=== PATIENT | male | born 2000 | race African-American/Black ===

== ENCOUNTER 2022-10-11 08:16 | Emergency (ER) | payer MEDICAID ==
[~2022-10-11] VITALS: Ht 193 cm; Wt 77.3 kg
[2022-10-11 08:23] VITALS: TEMP 97.9
[2022-10-11] MEDS ORDERED: LIDOCAINE 1% 10 ML VIAL ONE (09:00)
[2022-10-11] MEDS ORDERED: CLIN-26 PO (09:43)
[2022-10-11 09:46] VITALS: BP 123/77; PULSE 70; RESP 18
== END 2022-10-11 09:48 | disposition home or self-care (01) ==
LOC: EMS 08:16
DX: S51.811A Laceration without foreign body of right forearm, initial encounter (principal); S71.011A Laceration without foreign body, right hip, initial encounter; F12.90 Cannabis use, unspecified, uncomplicated; Z88.0 Allergy status to penicillin; W01.0XXA Fall on same level from slipping, tripping and stumbling without subsequent striking against object, initial encounter; Y93.89 Activity, other specified; Y92.89 Other specified places as the place of occurrence of the external cause; Y99.8 Other external cause status
CPT/HCPCS: 99284; 73090; 73120; 12004; J3490

== ENCOUNTER 2022-10-18 09:54 | Emergency (ER) | payer MEDICAID ==
[~2022-10-18] VITALS: Ht 193 cm; Wt 86.4 kg
[~2022-10-18 09:54] MED LIST: CLIN-26 PO
[2022-10-18 10:00] VITALS: TEMP 98
[2022-10-18 10:46] VITALS: BP 122/80; PULSE 60; RESP 20
== END 2022-10-18 10:51 | disposition home or self-care (01) ==
LOC: EMS 09:56
DX: S50.911D Unspecified superficial injury of right forearm, subsequent encounter (principal); F12.90 Cannabis use, unspecified, uncomplicated; Z88.0 Allergy status to penicillin; Z48.02 Encounter for removal of sutures; X58.XXXD Exposure to other specified factors, subsequent encounter
CPT/HCPCS: 99281; Z7502